=== PATIENT | male | born 1970 | race Caucasian/White ===

== ENCOUNTER 2018-10-14 09:13 | Day surgery (SDC) | payer BC, OTHER ==
[2018-10-14] MEDS ORDERED: Lactated Ringers 1,000 ML IV SCH ×2 (10:03→12:15)
[2018-10-14] MEDS ORDERED: fentaNYL 100 MCG/2 ML SDV ONE (10:51)
[2018-10-14] MEDS ORDERED: Midazolam 1 MG/ML 2 ML SDV ONE (10:51)
[2018-10-14] MEDS ORDERED: Propofol 200 MG/20 ML SDV ONE (10:51)
--- NOTE | 2018-10-14 12:57 | OR ---
DATE OF PROCEDURE: 10/14/2018 PREOPERATIVE DIAGNOSIS: Colon cancer screening. POSTOPERATIVE DIAGNOSIS: Unremarkable colonoscopy. PROCEDURE: Colonoscopy to the cecum. SURGEON: Armando Mcneil MD ANESTHESIA: IV anesthesia with monitored anesthesia care. INDICATIONS: This 48-year-old white male is referred for a colonoscopy for colon cancer screening. He has never had a colonoscopic exam. I counseled him for the procedure, including risks and alternatives, and he gave his informed consent to proceed. DESCRIPTION OF PROCEDURE: The patient was placed in the left lateral decubitus position. IV anesthesia was administered by the Anesthesia Service. Time-out was held. A rectal exam was performed, which was unremarkable. The flexible video Olympus colonoscope was introduced through his anus, up his rectum, and out his colon all way to the cecum. Once the cecum was reached, the scope was slowly withdrawn, examining the mucosa throughout. No mucosal abnormalities were noted. The scope was retroflexed in the rectum with the distal rectum appearing unremarkable. The scope was straightened and removed. He tolerated the procedure well. Armando Mcneil MD /[id number]
== END 2018-10-14 12:50 | disposition home or self-care (01) ==
LOC: JP.SDS 09:13
PROVIDERS: ATTEND Surgery
DX: Z12.11 Encounter for screening for malignant neoplasm of colon (principal); E66.9 Obesity, unspecified; Z88.0 Allergy status to penicillin; Z88.5 Allergy status to narcotic agent; Z79.1 Long term (current) use of non-steroidal anti-inflammatories (NSAID); Z68.34 Body mass index [BMI] 34.0-34.9, adult
CPT/HCPCS: 45378; J2250; J2704; J3010; J7120

== ENCOUNTER 2023-02-06 06:00 | Day surgery (SDC) | payer BC ==
[2023-02-06] MEDS ORDERED: Lidocaine 1% with EPINEPHrine 1:100,000 50 ML MDV ONE (06:43)
[2023-02-06] MEDS ORDERED: Bupivacaine 0.5%/EPINEPHrine 1:200,000 50 ML MDV ONE (06:43)
[2023-02-06] MEDS ORDERED: Bupivacaine 0.5% 50 ML MDV ONE (06:43)
[2023-02-06] MEDS ORDERED: Sodium Chloride 0.9% 1,000 ML IV SCH (06:45)
[2023-02-06] MEDS ORDERED: Midazolam 1 MG/ML 2 ML SDV ONE ×2 (07:18→07:48)
[2023-02-06] MEDS ORDERED: Propofol 200 MG/20 ML SDV ONE ×2 (07:18→08:08)
[2023-02-06] MEDS ORDERED: fentaNYL 100 MCG/2 ML SDV ONE ×2 (07:18→07:48)
[2023-02-06] MEDS ORDERED: Ropivacaine 50 ML, dexAMETHasone 8 MG, EPINEPHrine 0.4 MG, Sodium Chloride 0.9% 27.6 ML NERVRT SCH ×4 (07:30)
[2023-02-06] MEDS ORDERED: metroNIDAZOLE/Normal Saline 500 MG in Premix Bag 1 BAG IV ONE (07:30)
[2023-02-06] MEDS ORDERED: ceFAZolin 2 GM in Premix Bag 1 BAG IV ONE (07:45)
[2023-02-06] MEDS ORDERED: Acetaminophen/HYDROcodone 325-5 MG Tab PO PRN (09:41)
[2023-02-06] MEDS ORDERED: Ondansetron 4 MG/2 ML SDV IVPUSH PRN (09:42)
== END 2023-02-06 14:54 | disposition home or self-care (01) ==
LOC: JP.SDS 06:00
PROVIDERS: ATTEND Surgery
DX: K40.90 Unilateral inguinal hernia, without obstruction or gangrene, not specified as recurrent (principal); K21.9 Gastro-esophageal reflux disease without esophagitis; Z79.899 Other long term (current) drug therapy; Z88.0 Allergy status to penicillin; Z88.5 Allergy status to narcotic agent; Z98.890 Other specified postprocedural states
CPT/HCPCS: A9270-GY; C1713; C1781; J0171; J0690; J1100; J2250; J2704; J2795; J3010; J3490; J7030